=== PATIENT | male | born 1950 | race Caucasian/White ===

== ENCOUNTER → 2020-05-21 | Outpatient (CLI) | payer MEDICARE | END | disposition home or self-care (01) | LOC: CLISVCS 11:13 | PROVIDERS: ATTEND Anesthesiology | DX: Z20.828 Contact with and (suspected) exposure to other viral communicable diseases (principal) | CPT/HCPCS: 87635 ==

== ENCOUNTER 2020-05-26 08:27 | Day surgery (SDC) | payer MEDICARE ==
[~2020-05-26] VITALS: Ht 165.1 cm; Wt 79.1 kg
[2020-05-26] MEDS ORDERED: CHLORHEXIDINE 15 ML UDC MM ONE (09:30)
[2020-05-26] MEDS ORDERED: LACTATED RINGERS 1,000 ML IV SCH (09:30)
[2020-05-26] MEDS ORDERED: LOSA50TA14 PO (09:47)
[2020-05-26] MEDS ORDERED: TURM500C4 PO (09:47)
[2020-05-26] MEDS ORDERED: ROSU10TA2 PO (09:47)
[2020-05-26] MEDS ORDERED: HYDR12.517 PO (09:47)
[2020-05-26] MEDS ORDERED: ASPI81TA45 PO (09:47)
[2020-05-26 09:49] VITALS: BP 142/89
[2020-05-26 10:51] LABS: ALANINE AMINOTRANSFERASE 25 U/L (12-78); ALBUMIN 3.7 g/dL (3.4-5.0); ANION GAP 4 mmol/L (5-15); CHLORIDE 107 mmol/L (98-107); CREATININE 0.81 mg/dL (0.7-1.3)
[2020-05-26 10:53] LABS: ALKALINE PHOSPHATASE 70 U/L (45-117); BILIRUBIN,TOTAL 1.1 mg/dL (0.2-1.0); TOTAL PROTEIN 7.1 g/dL (6.4-8.2)
[2020-05-26] MEDS ORDERED: HYDROmorphone 1 MG/ML, 1ML INJ IVPush PRN (15:00)
[2020-05-26] MEDS ORDERED: KETOROLAC 30 MG/1 ML IVPush PRN (15:00)
[2020-05-26] MEDS ORDERED: PROMETHAZINE 25 MG/ML, 1ML IVPush PRN (15:00)
[2020-05-26] MEDS ORDERED: MEPERIDINE/PF 25MG/0.5ML IVPush PRN (15:00)
[2020-05-26] MEDS ORDERED: FENTANYL PF 100 MCG/2ML IV PRN (15:00)
[2020-05-26] MEDS ORDERED: HYDROcodone/APAP 7.5-325MG/15ML UDC PO PRN (15:00)
[2020-05-26] MEDS ORDERED: OXYcodone 5 MG/5 ML ORAL.SOL UDC PO PRN (15:00)
[2020-05-26] MEDS ORDERED: SUCCINYLCHOLINE 20 MG/ML, 10ML ONE (15:18)
[2020-05-26] MEDS ORDERED: MIDAZOLAM 1 MG/ML, 2ML ONE (15:18)
[2020-05-26] MEDS ORDERED: ONDANSETRON 2MG/ML, 2ML ONE (15:18)
[2020-05-26] MEDS ORDERED: GLYCOPYRROLATE 0.2MG/1ML, 5ML ONE (15:18)
[2020-05-26] MEDS ORDERED: FENTANYL PF 100 MCG/2ML ONE (15:18)
[2020-05-26] MEDS ORDERED: CEFAZOLIN 1,000 MG ONE (15:18)
[2020-05-26] MEDS ORDERED: ROCURONIUM 10MG/ML,5ML ONE (15:18)
[2020-05-26] MEDS ORDERED: NEOSTIGMINE 1 MG/ML, 10ML ONE (15:18)
[2020-05-26] MEDS ORDERED: PROPOFOL 10 MG/ML, 20ML ONE (15:18)
[2020-05-26] MEDS ORDERED: DEXAMETHASONE 4 MG/ML, 1ML ONE (15:18)
[2020-05-26] MEDS ORDERED: EPINEPHRINE 1 MG/ML, 1ML ONE (15:26)
[2020-05-26] MEDS ORDERED: BUPIVACAINE/PF 0.5% ONE (15:26)
[2020-05-26] MEDS ORDERED: PHENYLEPHRINE 10 MG/ML ONE (15:46)
[2020-05-26] MEDS ORDERED: KETOROLAC 30 MG/1 ML ONE (17:23)
[2020-05-26] MEDS ORDERED: HYDROcodone/APAP 7.5-325MG/15ML UDC ONE (17:23)
== END 2020-05-26 19:50 | disposition home or self-care (01) ==
LOC: OUT 08:27 → EDSTATUS 14:30 → OUT 19:30
PROVIDERS: ATTEND Surgery
DX: C43.59 Malignant melanoma of other part of trunk (principal); I10 Essential (primary) hypertension; E78.5 Hyperlipidemia, unspecified; Z79.899 Other long term (current) drug therapy; Z87.891 Personal history of nicotine dependence; Z82.49 Family history of ischemic heart disease and other diseases of the circulatory system
CPT/HCPCS: 14301; 36415; 38525; 78195; 80053; 88307; 88341; 88342; 93005; A9541; J0171; J0330; J0690; J1100; J1885; J2250; J2370; J2405; J2704; J2710; J3010; J7120